=== PATIENT | male | born 1940 | race Caucasian/White ===

== ENCOUNTER 2018-09-15 16:32 | Inpatient (IN) ==
[2018-09-15 18:31] LABS: BUN Creatinine Ratio 19.9 (10-20); Calcium 8.9 mg/dl (8.5-10.1); Creatinine Clr Calc Pharmacy 57.9 ml/min; Est GFR (African American) 67.1; Est GFR (Non-African American) 57.9; Potassium 3.5 mmol/L (3.5-5.1)
[2018-09-15 18:40] LABS: Hematocrit (blood only) 38.5 % (42-52); Hemoglobin 12.6 g/dL (14.0-18.0); Mean Corpuscular Hgb Conc 32.7 g/dL (32-36); Mean Corpuscular Volume 95.3 fL (80-100); Mean Platelet Volume 12.9 fL (7.4-10.4); Platelet Count 91 K/uL (130-400); RDW Coefficient of Variation 15.2 % (11.5-14.5); RDW Standard Deviation 52.9 fL (36.4-46.3); Red Blood Count 4.04 M/uL (4.7-6.1); White Blood Count 7.24 K/uL (4.8-10.8)
[2018-09-15 18:47] LABS: Basophils # (auto) 0.01 K/uL (0-0.2); Basophils % (auto) 0.1 %; Eosinophils # (auto) 0.08 K/uL (0-0.5); Eosinophils % (auto) 1.1 %; Immature Granulocytes # (auto) 0.02 K/uL (0.00-0.02); Immature Granulocytes % (auto) 0.3 %; Lymphocytes # (auto) 1.79 K/uL (1.2-3.4); Lymphocytes % (auto) 24.7 %; Monocytes # (auto) 0.47 K/uL (0.11-0.59); Monocytes % (auto) 6.5 %; Neutrophils # (auto) 4.87 K/uL (1.4-6.5); Neutrophils % (auto) 67.3 %; Platelet Estimate Decreased (Normal)
[2018-09-15] MEDS ORDERED: VANCOMYCIN CONSULT ACTIVE PRN ×2 (18:50→20:31)
[2018-09-15] MEDS ORDERED: VANCOMYCIN HCL 2,750 MG in SODIUM CHLORIDE 0.9% 500 ML IV ONE (18:50)
--- NOTE | 2018-09-15 19:24 | History & Physical Report ---
Date of Service September 15, 2018 Assessment & Plan (1) Cellulitis of right lower extremity: Continue vancomycin started in the ED. Outpatient culture grew staph aureus. Sensitivities are not available at this time. The patient's son will attempt to get the culture results from the outpatient clinic tomorrow. He failed a complete course of outpatient doxycycline therapy. Cellulitic area i nvolves greater than 10% of body surface area Present on Admission?: Yes (2) Chronic venous stasis dermatitis: Venous Doppler study pending to rule out underlying DVT Present on Admission?: Yes (3) Type 2 diabetes mellitus: ADA diet. Continue glipizide. Sliding scale coverage as needed (4) Hypertension: Treated with lisinopril and atenolol (5) DVT prophylaxis: Lovenox subcu History of Present Illness Chief Complaint: Right lower extremity swelling, tenderness, erythema Primary Care Provider: Jackson Mayer DO 78-year-old male with chronic venous insufficiency and bilateral lower extremity chronic venous stasis ulcerations and dermatitis. The right lower extremity has become more swollen erythemic and he had some open draining lesions. An outpatient culture grew staph aureus but sensitivities are not available. He failed a complete course of outpatient oral doxycycline. He now was admitted for intravenous vancomycin therapy. His son will try to get the culture sensitivity report from the outpatient clinic and bring it in tomorrow. He is hemodynamically stable. Venous Doppler study of the legs has been ordered by the ED physician and is pending. He denies any fever or chills. He states the appearance of his left lower extremity stasis dermatitis is unchanged. Allergies Allergy/AdvReac Type Severity Reaction Status Date / Time ibuprofen AdvReac Verified 09/15/18 17:20 rofecoxib [From Vioxx] AdvReac Verified 09/15/18 17:20 Home Medications Home Medications Medication Instructions Recorded Confirmed Type melatonin 5 mg tablet 5 mg PO HS 09/08/18 09/15/18 History allopurinol 300 mg PO QAM 09/15/18 09/15/18 History aspirin [Adult Aspirin Regimen] 81 mg PO QAM 09/15/18 09/15/18 History atenolol 50 mg PO QAM 09/15/18 09/15/18 History cholecalciferol (vitamin D3) 2,000 units PO QAM 09/15/18 09/15/18 History finasteride 5 mg PO QAM 09/15/18 09/15/18 History furosemide 40 mg PO QAM 09/15/18 09/15/18 History glipizide 10 mg PO QAM 09/15/18 09/15/18 History glucosam garrett [id number] 1 cap PO QAM 09/15/18 09/15/18 History lisinopril 20 mg PO QAM 09/15/18 09/15/18 History multivitamin 1 tab PO QAM 09/15/18 09/15/18 History tamsulosin 0.4 mg PO HS 09/15/18 09/15/18 History trazodone 50 mg PO HS 09/15/18 09/15/18 History Past Med/Surg History Medical History Diabetes Gout Hearing difficulty Surgical History H/O neck surgery Hx of hernia repair Hx of tonsillectomy Family History Father Cancer Brother Diabetes Kidney stones Social History marital status: / Current Living Situation: Alone current occupational status: retired Feels Safe at Home: Yes Smoking Status: Never smoker Tobacco Type: cigars Age Started Using Tobacco: 28 Age Quit Using Tobacco: 38 Second Hand Exposure: No Hx Alcohol Use: No Hx Substance Use: No Physical Activity Frequency: Does not Exercise Review of Systems Review of Systems: Constitutional-no fever or chills ENT-no blurred vision, no double vision, no epistaxis, no sore throat Respiratory-no cough, no wheezing, no shortness of breath Cardiac-no palpitations, no chest pain, no syncope GI-no nausea, vomiting, diarrhea, melena, hematochezia -no urinary retention, no urinary incontinence, no dysuria, no hematuria Musculoskeletal-no joint pain, no muscle tenderness. Chronic bilateral lower extremity edema. Right lower extremity edema has worsened over the past week Skin-chronic bilateral lower extremity stasis dermatitis. Right lower extremity changes of cellulitis over the past week Neuro-no isolated weakness, no paresthesia, no weakness Psych-no depression, no anxiety Physical Exam Physical Exam: General-alert and oriented x3, no fevers, no chills HEENT-head atraumatic and normocephalic, TMs intact bilaterally, pupils equal and reactive to light, extraocular muscles intact Neck-no lymphadenopathy or thyromegaly, trachea midline Chest-clear to auscultation percussion. No rales wheezing or rhonchi Cardiac-regular rate and rhythm, normal S1 and S2, no JVD Abdomen-normal bowel sounds, nontender, no hepatosplenomegaly Extremities-no cyanosis, clubbing. Venous stasis dermatitis bilateral lower extremities below the knee. Right lower extremity is more swollen than the left below the knee with erythema extending proximally above the stasis dermatitis area. Healing nondraining skin lesions circumferentially in various areas about the right lower extremity dermatitis area. Neuro-cranial nerves II through XII intact, motor and sensory function within normal limits, strength symmetrical , no focal deficits Psych-normal affect, normal mood Results & Data Vital Signs (Past 12 Hours) Vital Signs Temp Pulse Pulse Resp BP BP Pulse Ox 09/15/18 18:06 93 H 20 140/69 97 09/15/18 17:03 75 20 109/62 95 09/15/18 16:36 36.6 C 79 20 123/66 93 Laboratory Results 09/15/18 17:47 09/15/18 17:47 PG Care Time/CCT Total # of Minutes Spent Total Time Spent with Patient: Total time spent is greater than 50% in coordi nation of care (as documented) at patient's floor/unit and/or counseling patient:
--- NOTE | 2018-09-15 19:44 | Ultrasound Report ---
US venous doppler LE BI CLINICAL HISTORY: Bilateral leg pain and redness COMPARISON STUDY: No previous studies for comparison. FINDINGS: Real-time and color flow Doppler imaging were performed. Flow was seen within the femoral, popliteal and calf veins with no intraluminal thrombus demonstrated. The saphenous vein is patent.. T here is bilateral calf edema. IMPRESSION: No evidence of lower extremity DVT. Electronically signed by: Levi Pratt M.D. 09/15/2018 7:43 PM
[2018-09-15] MEDS ORDERED: ACETAMINOPHEN 325 MG TAB PO PRN (20:31)
[2018-09-15] MEDS ORDERED: ALUMINUM/MAGNESIUM SUSP 30 ML UDC PO PRN (20:31)
[2018-09-15] MEDS ORDERED: ONDANSETRON INJ 2 MG/ML 2 ML VIAL IV PRN (20:31)
[2018-09-15] MEDS ORDERED: NON-FORMULARY MEDICATION (Melatonin 5 MG) PO SCH (21:00)
[2018-09-15] MEDS ORDERED: GLUCAGON FOR INJ 1 MG VIAL IM PRN (21:30)
[2018-09-15] MEDS ORDERED: CARBOHYDRATES FOR HYPOGLYCEMIA PO PRN (21:30)
[2018-09-15] MEDS ORDERED: DEXTROSE 50% 50 ML SYRINGE IV PRN (21:30)
[2018-09-15] MEDS ORDERED: GLUCOSE 40% GEL 15 GM TUBE PO PRN (21:30)
[2018-09-15] MEDS ORDERED: GLUCOSE 10 TABS/TUBE PO PRN (21:30)
[2018-09-15] MEDS: TRAZODONE HCL 50 MG TAB PO SCH (21:42)
[2018-09-15] MEDS: TAMSULOSIN HCL 0.4 MG CAP PO SCH (21:42)
[2018-09-15 21:53] LABS: INR 1.1 (0.9-1.1); Prothrombin Time 11.4 Seconds (9.0-12.0)
[2018-09-15] MEDS: INSULIN ASPART 100 UNITS/ML 3 ML PEN SC SCH (22:06)
[2018-09-15] MEDS: ENOXAPARIN INJ 40 MG/0.4 ML SYR SQ SCH (22:32)
--- NOTE | 2018-09-15 23:07 | Emergency Department Note ---
Entered by Sasha Richardson acting as a scribe for Alfa Holland History of Present Illness General Chief complaint: Infection, Wound Stated complaint: RT LEG INFECTION Time Seen by Provider: 09/15/18 17:19 Source: patient Limitations: no limitations History of Present Illness Provider complaint: Bilateral leg wound infections Onset (ago): day(s) 10 Location: lower extremity (left and right legs ) Pain Consistency: + other (worsening ) Relieved By: not by medication (Doxycycline) Exacerbated By: + none Associated symptoms: + other (Wound drainage ); no chest pain, no fever/chills and no shortness of breath The patient is an 78 year old male who presents to the ED with complaints of worsening leg wound infections since 10 days ago. The patient reports that he saw his PCP, Dr. Elizabeth for his leg wounds. He notes that his PCP completed a wound culture on the patients legs and found that the patient had s taphylococcus. The patient reports that he was given Doxycycline for a 10 day cycle, which he already completed.The patient states that his legs initially had a lot of drainage but it has slowed down in the past few days. The patient denies any chest pain, shortness of breath, or fevers. Home Medications Home Medications Medication Instructions Recorded Confirmed Type melatonin 5 mg tablet 5 mg PO HS 09/08/18 09/15/18 History allopurinol 300 mg PO QAM 09/15/18 09/15/18 History aspirin [Adult Aspirin Regimen] 81 mg PO QAM 09/15/18 09/15/18 History atenolol 50 mg PO QAM 09/15/18 09/15/18 History cholecalciferol (vitamin D3) 2,000 units PO QAM 09/15/18 09/15/18 History finasteride 5 mg PO QAM 09/15/18 09/15/18 History furosemide 40 mg PO QAM 09/15/18 09/15/18 History glipizide 10 mg PO QAM 09/15/18 09/15/18 History glucosam garrett [id number] 1 cap PO QAM 09/15/18 09/15/18 History lisinopril 20 mg PO QAM 09/15/18 09/15/18 History multivitamin 1 tab PO QAM 09/15/18 09/15/18 History tamsulosin 0.4 mg PO HS 09/15/18 09/15/18 History trazodone 50 mg PO HS 09/15/18 09/15/18 History Allergies Allergy/AdvReac Type Severity Reaction Status Date / Time ibuprofen AdvReac Verified 09/15/18 17:20 rofecoxib [From Vioxx] AdvReac Verified 09/15/18 17:20 Past Med/Surg History Medical History Hypertension (Chronic) Type 2 diabetes mellitus (Chronic) Chronic venous stasis dermatitis (Chronic) Cellulitis of right lower extremity (Acute) Diabetes Gout Hearing difficulty Surgical History H/O neck surgery Hx of hernia repair Hx of tonsillectomy Family History Father Cancer Brother Diabetes Kidney stones Social History Preferred Language: Singaporean Communication Ability: Effective Mold Finisher Required: No Beliefs That Will Affect Care: None marital status: / Current Living Situation: Alone current occupational status: retired Feels Safe at Home: Yes Safety Concerns: Feels Safe At This Time Smoking Status: Former smoker Tobacco Type: cigars Age Started Using Tobacco: 28 Age Quit Using Tobacco: 38 Do You Dip or Chew Tobacco: No Second Hand Exposure: No Tobacco Cessation Education Requested by Patient: No Hx Alcohol Use: No Hx Substance Use: No Physical Activity Frequency: Does not Exercise Review of Systems See HPI for pertinent positives & negatives. and A total of 10 systems reviewed and were otherwise negative Physical Exam Vital Signs Vital Signs - 24 hr 09/15/18 16:36 09/15/18 17:03 09/15/18 18:06 Temperature 36.6 C Temperature Source Oral Sepsis Recent Fever Within 48 Hours No Sepsis New/Unexplained Change in Mental Status No Sepsis Action Taken by Nursing No Action Required Pulse Rate 79 Pulse Rate [Left Finger] 75 93 H Pulse Rhythm Regular Pulse Strength Normal Respiratory Rate 20 20 20 Respiratory Effort / Characteristics Non-Labored Non-Labored Non-Labored Respiratory Depth Normal Normal Normal Respiratory Pattern Regular Regular Regular Blood Pressure 123/66 Blood Pressure [Right Arm] 109/62 140/69 Blood Pressure Mean 85 Blood Pressure Mean [Right Arm] 77 92 Blood Pressure Position Sitting Pulse Oximetry 93 95 97 Oxygen Delivery Method Room Air Room Air Room Air GENERAL: He is oriented to person, place, and time. He appears well-developed and well-nourished. He does not appear distressed. HENT: Exam performed. - Head: Normocephalic and atraumatic. - Right Ear: External ear normal. No mastoid tenderness. - Left Ear: External ear normal. No mastoid tenderness. - Mouth/Throat: The oropharynx is clear and moist. No trismus in the jaw. No dental abscesses or uvula swelling. No oropharyngeal exudate or tonsillar abscesses. EYES: Conjunctivae and EOM are normal. Pupils are equal, round, and reactive to light. Right eye exhibits no discharge. Left eye exhibits no discharge. No scleral icterus. NECK: Normal range of motion. Neck supple. No JVD present. No spinous process tenderness present. No carotid bruit present. No rigidity. No tracheal deviation and normal range of motion present. No Brudzinski's sign and no Kernig's sign noted. CV: Normal rate, regular rhythm, normal heart sounds and intact distal pulses. Palpable radial pulses bue. PULM/CHEST: Effort normal and breath sounds normal. No respiratory distress. No stridor. He has no wheezes. He has no rales. - Chest Wall: He exhibits no tenderness. ABD: The abdomen is soft. Bowel sounds are normal. He has no distension. No mass is present. There is no tenderness. There is no rebound, no guarding, no Mendez's sign and no tenderness at McBurney's point. Rovsig negative. MUSC/SKEL: Bilateral lower extremities are swollen, right greater than left. Circumferential erythema around the bilateral lower extremities with multiple ulcers. No vesicles nikolsky negative. LYMPH: No cervical adenopathy. NEURO: He is alert and oriented to person, place, and time. He has normal strength. No cranial nerve deficit or sensory deficit. Coordination and gait normal. GCS eye subscore is 4. GCS verbal subscore is 5. GCS motor subscore is 6. Cerebellar tests wnl. PSYCH: He has a normal mood and affect. Behavior is normal. Judgment and thought content normal. Course 1719: Past medical records reviewed. The patient was evaluated in room B2. A complete history and physical exam was performed. 1846:Vital signs are stable. Labs and imaging within normal limits. The patient has failed outpatient treatment for cellulitis. He will be admitted to Dr. Anay devine for his dose of Vancomycin that he was given in the ED. Consultations Time: 18:46 Administered Medications Enoxaparin Sodium (Lovenox) 40 mg SQ Q24H FARNAZ Stop: 10/15/18 21:59 Last Admin: 09/15/18 22:32 Dose: 40 mg Documented by: [id number] Insulin Aspart (Novolog Flexpen) 0 units SC ACHS FARNAZ Stop: 10/15/18 20:59 Last Admin: 09/15/18 22:06 Dose: Not Given Documented by: [id number] Cosigned by: [id number] Tamsulosin HCl (Flomax) 0.4 mg PO HS FARNAZ Stop: 10/15/18 20:59 Last Admin: 09/15/18 21:42 Dose: 0.4 mg Documented by: [id number] Trazodone HCl (Desyrel) 50 mg PO HS FARNAZ Stop: 10/15/18 20:59 Last Admin: 09/15/18 21:42 Dose: 50 mg Documented by: [id number] Discontinued Medications Vancomycin HCl 2,750 mg/ (Sodium Chloride) 555 mls @ 200 mls/hr IV NOW ONE; Protocol Stop: 09/15/18 21:36 Last Infusion: 09/15/18 22:35 Dose: 0 mls/hr Documented by: [id number] Admin: 09/15/18 19:47 Dose: 200 mls/hr Documented by: [id number] Medical Decision Making Laboratory Data Result diagrams: 09/15/18 17:47 09/15/18 17:47 Lab Results 09/15/18 09/15/18 09/15/18 Range/Units 17:47 17:47 17:47 WBC 7.24 (4.8-10.8) K/uL RBC 4.04 L (4.7-6.1) M/uL Hgb 12.6 L (14.0-18.0) g/dL Hct 38.5 L (42-52) % MCV 95.3 (80-100) fL MCH 31.2 (25-34) pg MCHC 32.7 (32-36) g/dL RDW Std Deviation 52.9 H (36.4-46.3) fL RDW Coeff of Max 15.2 H (11.5-14.5) % Plt Count 91 L (130-400) K/uL MPV 12.9 H (7.4-10.4) fL Immature Gran % (Auto) 0.3 % Neut % (Auto) 67.3 % Lymph % (Auto) 24.7 % Keith % (Auto) 6.5 % Eos % (Auto) 1.1 % Baso % (Auto) 0.1 % Immature Gran # (Auto) 0.02 (0.00-0.02) K/uL Neut # (Auto) 4.87 (1.4-6.5) K/uL Lymph # (Auto) 1.79 (1.2-3.4) K/uL Keith # (Auto) 0.47 (0.11-0.59) K/uL Eos # (Auto) 0.08 (0-0.5) K/uL Baso # (Auto) 0.01 (0-0.2) K/uL Platelet Estimate Decreased L (Normal) PT (9.0-12.0) Seconds INR (0.9-1.1) Sodium 142 (136-145) mmol/L Potassium 3.5 (3.5-5.1) mmol/L Chloride 106 (98-107) mmol/L Carbon Dioxide 30 (21-32) mmol/L Anion Gap 6.0 (3-11) BUN 24 H (7-18) mg/dl Creatinine 1.18 (0.6-1.4) mg/dl Est Cr Clr Drug Dosing 57.9 ml/min Est GFR ( Amer) 67.1 Est GFR (Non-Af Amer) 57.9 BUN/Creatinine Ratio 19.9 (10-20) Glucose 69 L (70-99) mg/dl Lactate 1.2 (0.4-2.0) mmol/L Calcium 8.9 (8.5-10.1) mg/dl 09/15/18 Range/Units 17:47 WBC (4.8-10.8) K/uL RBC (4.7-6.1) M/uL Hgb (14.0-18.0) g/dL Hct (42-52) % MCV (80-100) fL MCH (25-34) pg MCHC (32-36) g/dL RDW Std Deviation (36.4-46.3) fL RDW Coeff of Max (11.5-14.5) % Plt Count (130-400) K/uL MPV (7.4-10.4) fL Immature Gran % (Auto) % Neut % (Auto) % Lymph % (Auto) % Keith % (Auto) % Eos % (Auto) % Baso % (Auto) % Immature Gran # (Auto) (0.00-0.02) K/uL Neut # (Auto) (1.4-6.5) K/uL Lymph # (Auto) (1.2-3.4) K/uL Keith # (Auto) (0.11-0.59) K/uL Eos # (Auto) (0-0.5) K/uL Baso # (Auto) (0-0.2) K/uL Platelet Estimate (Normal) PT 11.4 (9.0-12.0) Seconds INR 1.1 (0.9-1.1) Sodium (136-145) mmol/L Potassium (3.5-5.1) mmol/L Chloride (98-107) mmol/L Carbon Dioxide (21-32) mmol/L Anion Gap (3-11) BUN (7-18) mg/dl Creatinine (0.6-1.4) mg/dl Est Cr Clr Drug Dosing ml/min Est GFR ( Amer) Est GFR (Non-Af Amer) BUN/Creatinine Ratio (10-20) Glucose (70-99) mg/dl Lactate (0.4-2.0) mmol/L Calcium (8.5-10.1) mg/dl MDM Narrative Vital signs are stable. Labs and imaging within normal limits. The patient has failed outpatient treatment for cellulitis. He will be admitted to Dr. Cueva service for his dose of Vancomycin that he was given in the ED. Impression & Plan Bilateral cellulitis of lower leg, Failure of outpatient treatment Discharge Plan Visit Data *Final* Discharge Date/Time: 09/15/18 20:18 Chief Complaint: Infection, Wound Stated Complaint: RT LEG INFECTION ED Provider: Alfa Holland Discharge Problem: Bilateral cellulitis of lower leg, Failure of outpatient treatment Patient Disposition: Admitted As Inpatient Discharge Instructions Interventions: ED Discharge Assessment Last Done: 09/15/18 20:18 The scribe's documentation has been prepared under my direction and personally reviewed by me in its entirety. I confirm that the note above accurately reflects all work, treatment, procedures, and medical decision making performed by me.
[2018-09-16] MEDS ORDERED: glipiZIDE 5 MG TAB PO SCH (07:30)
[2018-09-16 07:41] LABS: BUN Creatinine Ratio 20.3 (10-20); Calcium 8.5 mg/dl (8.5-10.1); Creatinine Clr Calc Pharmacy 70.5 ml/min; Est GFR (African American) 85.1; Est GFR (Non-African American) 73.4; Potassium 3.2 mmol/L (3.5-5.1)
[2018-09-16] MEDS: ASPIRIN 81 MG ECTAB PO SCH (08:22)
[2018-09-16] MEDS: FUROSEMIDE 40 MG TAB PO SCH (08:22)
[2018-09-16] MEDS: MULTIVITAMIN TAB PO SCH (08:22)
[2018-09-16] MEDS: FINASTERIDE 5 MG TAB PO SCH (08:22)
[2018-09-16] MEDS: LISINOPRIL 20 MG TAB PO SCH (08:23)
[2018-09-16] MEDS: ATENOLOL 50 MG TABLET PO SCH (08:23)
[2018-09-16] MEDS: CHOLECALCIFEROL 1,000 UNITS TAB PO SCH (08:23)
[2018-09-16] MEDS: ALLOPURINOL 300 MG TAB PO SCH (08:24)
[2018-09-16] MEDS: INSULIN ASPART 100 UNITS/ML 3 ML PEN SC SCH ×4 (08:27→20:58)
[2018-09-16] MEDS ORDERED: GLUCOSAM SU DIP CHONDROIT C MN PO SCH (09:00)
[2018-09-16] MEDS ORDERED: VANCOMYCIN HCL 1,250 MG in SODIUM CHLORIDE 0.9% 250 ML IV SCH (10:00)
--- NOTE | 2018-09-16 11:18 | Pharmacy Report ---
Pharmacy Abx Initial Consult - Date of Service September 16, 2018 - Pharmacy Dosing Scope Date of Consult: 09/15/18 Consultation requested by: Dr. Cueva Pharmacy is consulted to initiate Vancomycin IV dosing therapy, order appropriate labs and adjust drug dose/frequency. - Subjective The patient is a 78 year old M admitted on 09/15/18 19:21. - Objective Height: 5 ft 7 in Weight: 105.9 kg Vital Signs (Past 12hrs): Vital Signs Temp Pulse Resp BP Pulse Ox 09/16/18 07:00 36.3 C L 74 16 120/69 96 09/15/18 23:30 36.4 C L 74 18 115/65 97 Lab Results (24hrs): Laboratory Tests (24 Hours) 09/16/18 09/15/18 09/15/18 06:38 17:47 17:47 WBC 7.24 Neut # (Auto) 4.87 Creatinine 0.97 1.18 Est Cr Clr Drug Dosing 70.5 57.9 Micro Results: Per patient and son, outpatient culture of RLE did grow Staphylococcus aureus but sensitivities were unknown at this time - Risk Factors for Resistance * Antimicrobial use within the last 90 days: Failed outpatient 10-day course of Doxycycline - Assessment & Plan Assessment 78 year old M admitted for RLE cellulitis Pertinent PMH includes DMII, chronic venous insufficiency and bilateral lower extremity chronic venous stasis ulcerations and dermatitis Outpatient RLE cultures from PCP's office apparently grew S. aureus per patient and his son but records have not been obtained as of yet Plan Vancomycin for treatment of cellulitis Vancomycin IV * Estimated PK Parameters: Vd 0.6 L/kg, Ephraim 0.063 hr-1, t1/2 11 hrs * Loading dose: 2750 mg (25 mg/kg) * Maintenance dose: 1250 mg IV (~12 mg/kg) every 14 hours * Goal trough level for cellulitis: 10 to 20 mcg/mL * Trough level ordered for 09/17/18 prior to the 3rd dose * A less than traditional dose and extended dosing interval have been selected due to likelihood of drug accumulation in obese patient Pharmacy will continue to follow and will adjust dose/frequency as necessary. Thank you.
[2018-09-16] MEDS ORDERED: POTASSIUM CHLORIDE 20 MEQ TABCR PO ONE (13:00)
[2018-09-16] MEDS: TAMSULOSIN HCL 0.4 MG CAP PO SCH (20:38)
[2018-09-16] MEDS: TRAZODONE HCL 50 MG TAB PO SCH (20:38)
[2018-09-16] MEDS: ENOXAPARIN INJ 40 MG/0.4 ML SYR SQ SCH (20:38)
--- NOTE | 2018-09-16 23:48 | Hospitalist Progress Note ---
Date of Service September 16, 2018 Assessment & Plan (1) Cellulitis of right lower extremity: Patient reports not much improved today Has severe chronic venous stasis bilateral lower extremities which is likely contributing -Outpatient culture results from 09/02 shows staph aureus resistant to penicillin G, but sensitive to oxacillin and all other tested antibiotics -Continue vancomycin for now -He failed a complete course of outpatient doxycycline therapy - Cellulitic area involves greater than 10% of body surface area -Continue to follow clinically, no systemic symptoms at this time -Needs elevation of extremities (2) Chronic venous stasis dermatitis: Venous Doppler study negative for DVT -Leg elevation (3) Type 2 diabetes mellitus: Well-controlled -Continue ADA diet. -DC glipizide while here and provide sliding scale coverage as needed -Check hemoglobin A1c in the morning (4) Hypertension: Blood pressures controlled -Treated with lisinopril and atenolol-continue aspirin (5) Gout: No acute flare -Continue allopurinol (6) BPH (benign prostatic hyperplasia): Stable, no urinary retention -Continue finasteride (7) Thrombocytopenia: Platelets low at 91, no baseline to compare to Labs scanned into the chart show a low B12 level -Replace B12 IM for now and then orally as an outpatient (8) Anemia: Mild at 12.6, borderline macrocytic Could also be related to B12 deficiency -Replace B12 (9) DVT prophylaxis: Lovenox subcu Subjective Feeling well, reports leg is still swollen and somewhat painful. Denies headaches or lightheadedness, denies chest pain or shortness of breath, no abdominal pain or diarrhea. Doing well otherwise. Is afebrile here Review of Systems Review of Systems: All systems reviewed & are unremarkable except as noted in HPI & below Physical Exam Constitutional: WD/WN, vitals as above Eyes: PERRL, conjunctivae normal, anicteric sclerae ENMT: external ear and nose normal, oropharynx normal Neck: trachea midline, no thyromegaly Respiratory: normal respiratory effort, lungs clear to auscultation Cardiovascular: Rate/Rhythm: regular rate and regular rhythm Heart Sounds: no murmur Extremities: + edema (Bilateral lower extremity edema, 2+ on the right to the knee) Gastrointestinal (Abdomen): normal bowel sounds, soft, nontender, no hepatosplenomegaly Musculoskeletal: Extremities: extremities normal to inspection; no cyanosis and no clubbing Skin: + rash (Bilateral lateral legs with severe chronic stasis changes with hemosiderin deposits and thick scaling skin) and + erythema (Right leg with erythema surrounding chronic stasis changes up to the knee that is hot to the touch) Neurologic: moves all extremities and awake; no focal motor deficits Psychiatric: A+Ox3, euthymic affect Results & Data Vital Signs (Past 12 Hours) Vital Signs Temp Pulse Resp BP BP Pulse Ox 09/16/18 23:01 36.9 C 73 16 126/73 94 09/16/18 15:07 36.7 C 60 17 102/64 94 Laboratory Results 09/17/18 09/16/18 09/16/18 Range/Units 06:36 20:29 17:28 Sodium 145 (136-145) mmol/L Potassium 3.6 (3.5-5.1) mmol/L Chloride 111 H (98-107) mmol/L Carbon Dioxide 27 (21-32) mmol/L Anion Gap 7.0 (3-11) BUN 17 (7-18) mg/dl Creatinine 1.08 (0.6-1.4) mg/dl Est Cr Clr Drug Dosing 63.3 ml/min Est GFR ( Amer) 74.7 Est GFR (Non-Af Amer) 64.5 BUN/Creatinine Ratio 16.2 (10-20) Glucose 89 (70-99) mg/dl POC Glucose 146 H 98 (70-99) Calcium 8.0 L (8.5-10.1) mg/dl 09/16/18 09/16/18 09/16/18 Range/Units 12:10 07:52 06:38 Sodium 144 (136-145) mmol/L Potassium 3.2 L (3.5-5.1) mmol/L Chloride 109 H (98-107) mmol/L Carbon Dioxide 28 (21-32) mmol/L Anion Gap 7.0 (3-11) BUN 20 H (7-18) mg/dl Creatinine 0.97 (0.6-1.4) mg/dl Est Cr Clr Drug Dosing 70.5 ml/min Est GFR ( Amer) 85.1 Est GFR (Non-Af Amer) 73.4 BUN/Creatinine Ratio 20.3 H (10-20) Glucose 64 L (70-99) mg/dl POC Glucose 130 H 80 (70-99) Calcium 8.5 (8.5-10.1) mg/dl Diagnostic Findings Doppler right lower extremity negative for DVT PG Care Time/CCT Total # of Minutes Spent Total Time Spent with Patient: Total time spent is greater than 50% in coordination of care (as documented) at patient's floor/unit and/or counseling patient:
[2018-09-17] MEDS: VANCOMYCIN HCL 1,250 MG in SODIUM CHLORIDE 0.9% 250 ML IV SCH ×2 (01:05→15:09)
[2018-09-17 07:33] LABS: BUN Creatinine Ratio 16.2 (10-20); Creatinine Clr Calc Pharmacy 63.3 ml/min; Est GFR (African American) 74.7; Est GFR (Non-African American) 64.5; Potassium 3.6 mmol/L (3.5-5.1)
[2018-09-17 08:13] LABS: Mean Corpuscular Hgb Conc 32.8 g/dL (32-36)
[2018-09-17 08:14] LABS: Hematocrit (blood only) 36.6 % (42-52); Mean Corpuscular Volume 96.3 fL (80-100); RDW Coefficient of Variation 15.2 % (11.5-14.5); RDW Standard Deviation 53.7 fL (36.4-46.3); White Blood Count 6.21 K/uL (4.8-10.8)
[2018-09-17] MEDS: FUROSEMIDE 40 MG TAB PO SCH (08:27)
[2018-09-17 08:28] LABS: Basophils # (auto) 0.02 K/uL (0-0.2); Basophils % (auto) 0.3 %; Eosinophils # (auto) 0.16 K/uL (0-0.5); Eosinophils % (auto) 2.6 %; Immature Granulocytes # (auto) 0.01 K/uL (0.00-0.02); Immature Granulocytes % (auto) 0.2 %; Lymphocytes # (auto) 1.92 K/uL (1.2-3.4); Lymphocytes % (auto) 30.9 %; Mean Platelet Volume 13.4 fL (7.4-10.4); Monocytes # (auto) 0.46 K/uL (0.11-0.59); Monocytes % (auto) 7.4 %; Neutrophils # (auto) 3.64 K/uL (1.4-6.5); Neutrophils % (auto) 58.6 %; Platelet Count 84 K/uL (130-400); Platelet Estimate Decreased (Normal)
[2018-09-17] MEDS: FINASTERIDE 5 MG TAB PO SCH (08:28)
[2018-09-17] MEDS: CHOLECALCIFEROL 1,000 UNITS TAB PO SCH (08:28)
[2018-09-17] MEDS: ALLOPURINOL 300 MG TAB PO SCH (08:28)
[2018-09-17] MEDS: ATENOLOL 50 MG TABLET PO SCH (08:28)
[2018-09-17] MEDS: INSULIN ASPART 100 UNITS/ML 3 ML PEN SC SCH ×4 (08:28→21:07)
[2018-09-17] MEDS: LISINOPRIL 20 MG TAB PO SCH (08:28)
[2018-09-17] MEDS: ASPIRIN 81 MG ECTAB PO SCH (08:28)
[2018-09-17] MEDS: MULTIVITAMIN TAB PO SCH (08:28)
[2018-09-17] MEDS: CYANOCOBALAMIN 1000 MCG/ML VIAL IM SCH (08:31)
[2018-09-17 09:56] LABS: Estimated Average Glucose 140 mg/dl; Hemoglobin A1C 6.5 % (4.5-5.6)
[2018-09-17] MEDS ORDERED: VANCOMYCIN TROUGH ONE ×2 (14:30→17:30)
--- NOTE | 2018-09-17 15:45 | Pharmacy Report ---
Pharmacy Abx Dose Short Note - Date of Service September 17, 2018 - Assessment & Plan Assessment 78 year old M receiving vancomycin for treatment of cellulitis, failed outpatient doxycycline treatment. Day # 3 of antimicrobial therapy. Plan Vancomycin * Trough level of 17.2 mcg/mL is therapeutic. * Continue dose of 1250 mg IV every 14 hours - expect patient to accumulate slightly but do not expect level to go above 20 mcg/mL. * Goal trough level for cellulitis, failed outpatient therapy : 15 to 20 mcg/mL * Trough ordered for: 09/19/18 Pharmacy will continue to follow and will adjust dose/frequency as necessary. Thank you.
--- NOTE | 2018-09-17 17:55 | Hospitalist Progress Note ---
Date of Service September 17, 2018 Assessment & Plan (1) Cellulitis of right lower extremity: Is much improved today in the proximal leg, however with more erythema in the right dorsal foot-unclear why but overall is improved Has severe chronic venous stasis bilateral lower extremities which is likely contributing -Outpatient culture results from 09/02 shows staph aureus resistant to penicillin G, but sensitive to oxacillin and all other tested antibiotics -Continue vancomycin for now-Needs intravenous antibiotics for better penetration given significant venous stasis and lower extremity edema that is chronic -He failed a complete course of outpatient doxycycline therapy - Cellulitic area involves greater than 10% of body surface area -Continue to follow clinically, no systemic symptoms at this time, No fevers, no leukocytosis -Continue elevation of extremities -May be able to discharge home tomorrow on oral antibiotics again (2) Chronic venous stasis dermatitis: Venous Doppler study negative for DVT -Leg elevation (3) Type 2 diabetes mellitus: Well-controlled, Hemoglobin A1c here is very well controlled at 6.5% -Continue ADA diet. -DC glipizide while here and provide sliding scale coverage as needed (4) Hypertension: Blood pressures controlled -Treated with lisinopril and atenolol -continue aspirin (5) Gout: No acute flare -Continue allopurinol (6) BPH (benign prostatic hyperplasia): Stable, no urinary retention -Continue finasteride (7) Thrombocytopenia: Platelets low at 91 and now decreased down to 84, no baseline to compare to Labs scanned into the chart show a low B12 level -Replace B12 IM for now and then orally as an outpatient -Follow CBC (8) Anemia: Mild at 12.0, borderline macrocytic Could also be related to B12 deficiency -Replace B12 -Follow CBC as an outpatient (9) DVT prophylaxis: Lovenox subcu Disposition-remain hospitalized, but if continues to improve, could discharge home tomorrow on oral antibiotics Subjective Patient reports some pain in the right dorsal foot, but otherwise feels the leg swelling and redness has decreased.He is tolerating p.o., denies chest pain or shortness of breath, denies abdominal pain or diarrhea. He is otherwise feeling very well. He has been working on keeping his legs elevated today for most of the day. Review of Systems Review of Systems: All systems reviewed & are unremarkable except as noted in HPI & below Physical Exam Constitutional: WD/WN, vitals as above Eyes: PERRL, conjunctivae normal, anicteric sclerae Neck: trachea midline, no thyromegaly Respiratory: normal respiratory effort, lungs clear to auscultation Cardiovascular: Rate/Rhythm: regular rate and regular rhythm Heart Sounds: no murmur Extremities: + edema (Bilateral lower extremity edema, 1+ on the right to the knee improved) Gastrointestinal (Abdomen): normal bowel sounds, soft, nontender, no hepatosplenomegaly Musculoskeletal: Extremities: extremities normal to inspection; no cyanosis and no clubbing Skin: + rash (Bilateral lateral legs with severe chronic stasis changes with hemosiderin deposits and thick scaling skin) and + erythema (Right leg with erythema Proximal to chronic stasis changes Much improved) Edema of the right proximal leg is significantly reduced There is some mild erythema right dorsal foot that is mildly tender to palpation Neurologic: moves all extremities and awake; no focal motor deficits Psychiatric: A+Ox3, euthymic affect Results & Data Vital Signs (Past 12 Hours) Vital Signs Temp Pulse Resp BP BP Pulse Ox 09/17/18 16:47 36.7 C 59 L 17 115/68 98 09/17/18 08:09 36.7 C 66 16 120/72 95 Laboratory Results 09/17/18 09/17/18 09/17/18 Range/Units 17:05 14:34 12:06 WBC (4.8-10.8) K/uL RBC (4.7-6.1) M/uL Hgb (14.0-18.0) g/dL Hct (42-52) % MCV (80-100) fL MCH (25-34) pg MCHC (32-36) g/dL RDW Std Deviation (36.4-46.3) fL RDW Coeff of Max (11.5-14.5) % Plt Count (130-400) K/uL MPV (7.4-10.4) fL Immature Gran % (Auto) % Neut % (Auto) % Lymph % (Auto) % [place] % (Auto) % Eos % (Auto) % Baso % (Auto) % Immature Gran # (Auto) (0.00-0.02) K/uL Neut # (Auto) (1.4-6.5) K/uL Lymph # (Auto) (1.2-3.4) K/uL [place] # (Auto) (0.11-0.59) K/uL Eos # (Auto) (0-0.5) K/uL Baso # (Auto) (0-0.2) K/uL Platelet Estimate (Normal) Sodium (136-145) mmol/L Potassium (3.5-5.1) mmol/L Chloride (98-107) mmol/L Carbon Dioxide (21-32) mmol/L Anion Gap (3-11) BUN (7-18) mg/dl Creatinine (0.6-1.4) mg/dl Est Cr Clr Drug Dosing ml/min Est GFR ( Amer) Est GFR (Non-Af Amer) BUN/Creatinine Ratio (10-20) Glucose (70-99) mg/dl POC Glucose 96 102 H (70-99) Estimat Average Glucose mg/dl Hemoglobin A1c (4.5-5.6) % Calcium (8.5-10.1) mg/dl Vancomycin Trough 17.2 (See Comment) mcg/ml 09/17/18 09/17/18 09/17/18 Range/Units 08:08 06:40 06:40 WBC 6.21 (4.8-10.8) K/uL RBC 3.80 L (4.7-6.1) M/uL Hgb 12.0 L (14.0-18.0) g/dL Hct 36.6 L (42-52) % MCV 96.3 (80-100) fL MCH 31.6 (25-34) pg MCHC 32.8 (32-36) g/dL RDW Std Deviation 53.7 H (36.4-46.3) fL RDW Coeff of Max 15.2 H (11.5-14.5) % Plt Count 84 L (130-400) K/uL MPV 13.4 H (7.4-10.4) fL Immature Gran % (Auto) 0.2 % Neut % (Auto) 58.6 % Lymph % (Auto) 30.9 % [place] % (Auto) 7.4 % Eos % (Auto) 2.6 % Baso % (Auto) 0.3 % Immature Gran # (Auto) 0.01 (0.00-0.02) K/uL Neut # (Auto) 3.64 (1.4-6.5) K/uL Lymph # (Auto) 1.92 (1.2-3.4) K/uL [place] # (Auto) 0.46 (0.11-0.59) K/uL Eos # (Auto) 0.16 (0-0.5) K/uL Baso # (Auto) 0.02 (0-0.2) K/uL Platelet Estimate Decreased L (Normal) Sodium (136-145) mmol/L Potassium (3.5-5.1) mmol/L Chloride (98-107) mmol/L Carbon Dioxide (21-32) mmol/L Anion Gap (3-11) BUN (7-18) mg/dl Creatinine (0.6-1.4) mg/dl Est Cr Clr Drug Dosing ml/min Est GFR ( Amer) Est GFR (Non-Af Amer) BUN/Creatinine Ratio (10-20) Glucose (70-99) mg/dl POC Glucose 110 H (70-99) Estimat Average Glucose 140 mg/dl Hemoglobin A1c 6.5 H (4.5-5.6) % Calcium (8.5-10.1) mg/dl Vancomycin Trough (See Comment) mcg/ml 09/17/18 09/16/18 Range/Units 06:36 20:29 WBC (4.8-10.8) K/uL RBC (4.7-6.1) M/uL Hgb (14.0-18.0) g/dL Hct (42-52) % MCV (80-100) fL MCH (25-34) pg MCHC (32-36) g/dL RDW Std Deviation (36.4-46.3) fL RDW Coeff of Max (11.5-14.5) % Plt Count (130-400) K/uL MPV (7.4-10.4) fL Immature Gran % (Auto) % Neut % (Auto) % Lymph % (Auto) % [place] % (Auto) % Eos % (Auto) % Baso % (Auto) % Immature Gran # (Auto) (0.00-0.02) K/uL Neut # (Auto) (1.4-6.5) K/uL Lymph # (Auto) (1.2-3.4) K/uL [place] # (Auto) (0.11-0.59) K/uL Eos # (Auto) (0-0.5) K/uL Baso # (Auto) (0-0.2) K/uL Platelet Estimate (Normal) Sodium 145 (136-145) mmol/L Potassium 3.6 (3.5-5.1) mmol/L Chloride 111 H (98-107) mmol/L Carbon Dioxide 27 (21-32) mmol/L Anion Gap 7.0 (3-11) BUN 17 (7-18) mg/dl Creatinine 1.08 (0.6-1.4) mg/dl Est Cr Clr Drug Dosing 63.3 ml/min Est GFR ( Amer) 74.7 Est GFR (Non-Af Amer) 64.5 BUN/Creatinine Ratio 16.2 (10-20) Glucose 89 (70-99) mg/dl POC Glucose 146 H (70-99) Estimat Average Glucose mg/dl Hemoglobin A1c (4.5-5.6) % Calcium 8.0 L (8.5-10.1) mg/dl Vancomycin Trough (See Comment) mcg/ml PG Care Time/CCT Total # of Minutes Spent Total Time Spent with Patient: Total time spent is greater than 50% in coord ination of care (as documented) at patient's floor/unit and/or counseling patient:
[2018-09-17] MEDS: TAMSULOSIN HCL 0.4 MG CAP PO SCH (20:33)
[2018-09-17] MEDS: TRAZODONE HCL 50 MG TAB PO SCH (20:33)
[2018-09-17] MEDS: ENOXAPARIN INJ 40 MG/0.4 ML SYR SQ SCH (21:08)
[2018-09-18] MEDS: VANCOMYCIN HCL 1,250 MG in SODIUM CHLORIDE 0.9% 250 ML IV SCH (05:06)
[2018-09-18 08:12] LABS: Hematocrit (blood only) 36.5 % (42-52); Hemoglobin 12.1 g/dL (14.0-18.0); Mean Corpuscular Hgb Conc 33.2 g/dL (32-36); Mean Corpuscular Volume 96.1 fL (80-100); Mean Platelet Volume 12.9 fL (7.4-10.4); Platelet Count 85 K/uL (130-400); RDW Standard Deviation 52.5 fL (36.4-46.3); White Blood Count 6.24 K/uL (4.8-10.8)
[2018-09-18] MEDS: FUROSEMIDE 40 MG TAB PO SCH (08:36)
[2018-09-18] MEDS: ALLOPURINOL 300 MG TAB PO SCH (08:36)
[2018-09-18] MEDS: ATENOLOL 50 MG TABLET PO SCH (08:36)
[2018-09-18] MEDS: MULTIVITAMIN TAB PO SCH (08:36)
[2018-09-18] MEDS: FINASTERIDE 5 MG TAB PO SCH (08:36)
[2018-09-18] MEDS: CHOLECALCIFEROL 1,000 UNITS TAB PO SCH (08:36)
[2018-09-18] MEDS: ASPIRIN 81 MG ECTAB PO SCH (08:36)
[2018-09-18] MEDS: LISINOPRIL 20 MG TAB PO SCH (08:36)
[2018-09-18] MEDS: INSULIN ASPART 100 UNITS/ML 3 ML PEN SC SCH ×2 (08:38→13:00)
[2018-09-18] MEDS: CYANOCOBALAMIN 1000 MCG/ML VIAL IM SCH (08:38)
[2018-09-18 08:42] LABS: BUN Creatinine Ratio 18.8 (10-20); Calcium 8.5 mg/dl (8.5-10.1); Creatinine Clr Calc Pharmacy 66.4 ml/min; Est GFR (African American) 79.1; Est GFR (Non-African American) 68.3; Potassium 3.5 mmol/L (3.5-5.1)
--- NOTE | 2018-09-18 15:06 | Discharge Summary ---
Date of Service September 18, 2018 Admission HPI Per Admitting Provider 78-year-old male with chronic venous insufficiency and bilateral lower extremity chronic venous stasis ulcerations and dermatitis. The right lower extremity has become more swollen erythemic and he had some open draining lesions. An outpatient culture grew staph aureus but sensitivities are not available. He failed a complete course of outpatient oral doxycycline. He now was admitted for intravenous vancomycin therapy. His son will try to get the culture sensitivity report from the outpatient clinic and bring it in tomorrow. He is hemodynamically stable. Venous Doppler study of the legs has been ordered by the ED physician and is pending. He denies any fever or chills. He states the appearance of his left lower extremity stasis dermatitis is unchanged. Principal Diagnosis Lower extremity cellulitis Discharge Exam Constitutional WD/WN, vitals as above Eyes PERRL, conjunctivae normal, anicteric sclerae ENMT external ear and nose normal, oropharynx normal Neck trachea midline, no thyromegaly Respiratory normal respiratory effort, lungs clear to auscultation Cardiovascular Rate/Rhythm: regular rate and regular rhythm Heart Sounds: no murmur Extremities: + edema (Bilateral lower extremity edema, 1+ on the right to the knee improved) Gastrointestinal (Abdomen) normal bowel sounds, soft, nontender, no hepatosplenomegaly Musculoskeletal Extremities: extremities normal to inspection; no cyanosis and no clubbing Skin + rash (Bilateral lateral legs with severe chronic stasis changes with hemosiderin deposits and thick scaling skin) and + erythema (Right leg with erythema Proximal to chronic stasis changes Much improved) Neurologic moves all extremities and awake; no focal motor deficits Psychiatric A+Ox3, euthymic affect Discharge Data Allergies Allergy/AdvReac Type Severity Reaction Status Date / Time ibuprofen AdvReac Verified 09/24/18 09:09 rofecoxib [From Vioxx] AdvReac Verified 09/24/18 09:09 Consultations 09/15/18 18:51 ED Decision to Admit Stat Ordered Studies 09/15/18 17:21 US venous doppler [facility] Stat Hospital Course (1) Cellulitis of right lower extremity: Is much improved with less erythema and less edema overall in RLE Has severe chronic venous stasis bilateral lower extremities which is likely contributing -Outpatient culture results from 09/02 shows staph aureus resistant to penicillin G, but sensitive to oxacillin and all other tested antibiotics -Was treated with IV vancomycin for several days -He failed a complete course of outpatient doxycycline therapy - no systemic symptoms at this time, No fevers, no leukocytosis -Continue elevation of extremities when seated or lying down -will discharge to home on po clindamycin with close outpt f/u (2) Chronic venous stasis dermatitis: Venous Doppler study negative for DVT -Leg elevation (3) Type 2 diabetes mellitus: Well-controlled, Hemoglobin A1c here is very well controlled at 6.5% -Continue ADA diet. -restart home glipizide upon dc (4) Hypertension: Blood pressures controlled -Treated with lisinopril and atenolol -continue aspirin (5) Gout: No acute flare -Continue allopurinol (6) BPH (benign prostatic hyperplasia): Stable, no urinary retention -Continue finasteride (7) Thrombocytopenia: Platelets low at 91 and now decreased down to 85, no baseline to compare to Labs scanned into the chart show a low B12 level -Replace B12 IM here inpatient and then orally as an outpatient as B12 deficiency can cause low plts -Follow CBC as outpt (8) Anemia: Mild at 12.0, borderline macrocytic Could also be related to B12 deficiency -Replace B12 as above -Follow CBC as an outpatient (9) DVT prophylaxis: Lovenox subcu Disposition-stable for dc to home Total Time Total Time Spent Total Time Spent (In Minutes): >30 min Total Time Includes: Examination of the Patient, Discharge Planning and Medication Reconciliation Discharge Plan Discharge Items Patient Disposition: Home - Self-Care Reason For Visit: RIGHT LOWER EXTREMITY CELLULITIS Discharge Diagnosis: Lower extremity cellulitis Condition: Good Discharge Goals: Decrease discomfort, Improve disease control, Learn about illness and Therapeutic intervention Activity: Resume your previous activity Bathing: No limitations Non-emergency contact: Primary Care Provider Call non-emergency contact if: you have any medication questions and your symptoms worsen Follow-up/Referrals: Jackson Mayer DO [Primary Care Provider] - 09/24/18 9:00 am (Please, follow up with Dr. Jackson Mayer on SaturdaySeptember 24 at 9:00 am. *If you need to change this appointment, call the office at [phone].) Diet: Carb Consistent or DM2 Addtl Provider Instructions: You were admitted with cellulitis which is a skin and soft tissue infection of your right leg. You are treated with IV antibiotics and had significant improvement. Please finish out the course of oral antibiotics called into your pharmacy for you. Please reschedule your follow-up visit with the wound care clinic. Please follow-up with Dr. Mayer as scheduled for you. Of note, your platelet count is mildly low-Dr. Mayer can follow-up on this for you. It may be secondary to mildly low B12 levels. Please continue to take a B12 supplement daily. Prescriptions: New cyanocobalamin (vitamin B-12) 1,000 mcg capsule 1,000 mcg PO DAILY Qty: 30 RF: 0 Continued multivitamin tablet 1 tab PO QAM RF: 0 No Action allopurinol 300 mg tablet 300 mg PO QAM Qty: 90 RF: 3 aspirin [Adult Aspirin Regimen] 81 mg tablet,delayed release (DR/EC) 81 mg PO QAM Qty: 90 RF: 3 atenolol 50 mg tablet 50 mg PO QAM Qty: 90 RF: 3 cholecalciferol (vitamin D3) 2,000 unit capsule 2,000 units PO QAM Qty: 90 RF: 3 finasteride 5 mg tablet 5 mg PO QAM Qty: 90 RF: 3 furosemide 40 mg tablet 40 mg PO QAM Qty: 90 RF: 3 glipizide 10 mg tablet 10 mg PO QAM Qty: 90 RF: 3 glucosam garrett [id number] mg capsule 1 cap PO QAM Qty: 90 RF: 3 lisinopril 20 mg tablet 20 mg PO QAM Qty: 90 RF: 3 melatonin 5 mg tablet 5 mg PO HS Qty: 90 RF: 3 tamsulosin 0.4 mg capsule 0.4 mg PO HS Qty: 90 RF: 3 trazodone 50 mg tablet 50 mg PO HS Qty: 90 RF: 3 Stand-Alone Forms: [facility]/Other Patient Handouts: Cellulitis Dc Discharge Orders: Discharge Order (Routine); Ordered 09/18/18 Ordered By: Susie Manning Admission Data Admit Date/Time: 09/15/18 19:21 Attending Provider: Susie Manning Admit Provider: Chivo Cueva Primary Care Provider: Jackson Mayer Service: Medical Other Interventions: Discharge Summary Assessment (RN) Last Done: 09/18/18 15:41 Pending Studies at Discharge: No DC Date/Time DO NOT enter until pt leaves facility: 09/18/18 16:13
[2018-09-19] MEDS ORDERED: VANCOMYCIN TROUGH ONE (08:30)
== END 2018-09-18 16:13 | disposition home or self-care (01) | DRG 603 ==
LOC: ED 16:32 → 3E 19:21 → SUATTDRO 19:21 → 3E 20:18
DX: E11.9 Type 2 diabetes mellitus without complications; N40.0 Benign prostatic hyperplasia without lower urinary tract symptoms; D64.9 Anemia, unspecified; M10.9 Gout, unspecified; Z79.84 Long term (current) use of oral hypoglycemic drugs; Z79.82 Long term (current) use of aspirin; I87.8 Other specified disorders of veins; Z79.899 Other long term (current) drug therapy; L03.115 Cellulitis of right lower limb; I10 Essential (primary) hypertension; D69.6 Thrombocytopenia, unspecified